=== PATIENT | female | born 1985 | race Caucasian/White ===

== ENCOUNTER 2020-03-08 08:50 | Outpatient (CLI) | payer BC ==
--- NOTE | 2020-03-08 10:09 | RAD ---
XR Hysterosalpingogram History: Infertility evaluation Comparison: None. Findings: Patient was brought to the fluoroscopic suite. All questions were answered. Informed consen t obtained. Timeout performed. The patient's outer genitalia as well as external os were prepped and draped in normal sterile fashio n. Using a catheter contrast instilled retrograde into the uterus. Uterus arcuate appearance. The fallopian tubes are patent with active contrast spillage into the peritoneal cavity. Impression: 1. Arcuate uterus. 2. Free contrast spillage to the patent fallopian tubes.
== END 2020-03-08 08:51 | disposition home or self-care (01) ==
LOC: RAD 08:50
PROVIDERS: ATTEND Student in an Organized Health Care Education/Training Program
DX: N97.9 Female infertility, unspecified (principal); Q51.810 Arcuate uterus
CPT/HCPCS: 58340; 74740

== ENCOUNTER 2021-05-15 08:45 | Emergency (ER) | payer BC ==
[2021-05-15] MEDS ORDERED: Iopamidol-370 76% 500 ML 1 ML ONE (09:13)
[2021-05-15] MEDS ORDERED: Lorazepam 2 MG/ML VIAL ONE (09:20)
[2021-05-15 09:38] LABS: #Eosinphils 0.1 thou/uL (0.0-0.7); #Lymphocytes 2.4 thou/uL (1.20-3.40); #Monocytes 0.6 thou/uL (0.11-0.59); #Neutrophils 5.7 thou/uL (1.40-6.50); %Eosinophils 1.2 % (0.0-10.0); %Lymphocytes 27.2 % (21.0-51.0); %Monocytes 6.7 % (0.0-10.0); %Neutrophils 64.8 % (42.0-75.0); Hemoglobin 13.3 g/dL (12.0-16.0); Mean Corpuscular HGB CONC 33.8 g/dL (32.0-36.0); Mean Corpuscular Hemoglobin 30.7 pg (27.0-31.0); Mean Corpuscular Volume 90.9 fL (78.0-98.0); Mean Platelet Volume 6.9 fL (7.4-10.4); Platelet Count 278 thou/uL (130-400); RBC Distribution Width 11.6 % (11.5-14.5); Red Blood Cell (RBC) Count 4.33 mill/uL (4.20-5.40); White Blood Cell (WBC) Count 8.8 thou/uL (4.8-10.8)
[2021-05-15 09:54] LABS: ALT (SGPT) 28 U/L (8-55); AST (SGOT) 21 U/L (5-34); Albumin 3.8 g/dL (3.5-5.0); Alkaline Phosphatase 82 U/L (40-110); Anion Gap 12 mmol/L (10-20); BUN (Urea Nitrogen) 10 mg/dL (7.0-18.7); Bilirubin, Total 0.4 mg/dL (0.2-1.2); CK (CPK) 114 U/L (29-168); Calc. Creatinine Clearance 0 mL/min (70-130); Calcium 9.2 mg/dL (7.8-10.44); Carbon Dioxide 24 mmol/L (22-29); Chloride 109 mmol/L (98-107); Globulin 3.3 g/dL (2.4-3.5); Glucose 94 mg/dL (70-105); Lipase 28 U/L (8-78); Potassium 4.5 mmol/L (3.5-5.1); Protein, Total 7.1 g/dL (6.0-8.3); Sodium 140 mmol/L (136-145)
[2021-05-15 10:28] LABS: BHCG - Serum Negative (NEGATIVE); Pregs Control Background? CLEAR/WHITE (CLR/WHITE); Pregs Control Bar Appear? YES (CONTROL BAR)
[2021-05-15 11:40] LABS: SARS-CoV-2 NAA Rapid Test Not Detected (NotDetected)
== END 2021-05-15 12:30 | disposition home or self-care (01) ==
LOC: ERS 08:45
DX: F41.9 Anxiety disorder, unspecified (principal); Z20.822 Contact with and (suspected) exposure to COVID-19; Z79.899 Other long term (current) drug therapy
CPT/HCPCS: 36415; 71045; 71275; 80053; 82550; 83690; 83880; 84484; 84703; 85025; 85379; 93005; 96374; J2060; U0002

== ENCOUNTER 2021-05-23 11:19 | Inpatient (IN) | payer BC ==
[2021-05-23] MEDS ORDERED: Fentanyl 100 MCG/2 ML VIAL ONE (11:21)
[2021-05-23] MEDS ORDERED: Iopamidol 370 76% 100 ML VIAL ONE (11:30)
[2021-05-23 11:43] LABS: #Basophils 0.1 thou/uL (0.0-0.2); #Eosinphils 0.1 thou/uL (0.0-0.7); #Monocytes 0.6 thou/uL (0.11-0.59); #Neutrophils 4.6 thou/uL (1.40-6.50); %Basophils 1.4 % (0.0-1.0); %Eosinophils 1.2 % (0.0-10.0); %Lymphocytes 36.3 % (21.0-51.0); %Monocytes 6.7 % (0.0-10.0); %Neutrophils 54.4 % (42.0-75.0); Hemoglobin 14.3 g/dL (12.0-16.0); Mean Corpuscular HGB CONC 34.1 g/dL (32.0-36.0); Mean Corpuscular Volume 90.9 fL (78.0-98.0); Mean Platelet Volume 6.8 fL (7.4-10.4); Platelet Count 312 thou/uL (130-400); RBC Distribution Width 11.5 % (11.5-14.5); White Blood Cell (WBC) Count 8.4 thou/uL (4.8-10.8)
[2021-05-23] MEDS ORDERED: Fentanyl CADD 100 ML IV SCH ×2 (11:45→16:15)
[2021-05-23 11:56] LABS: BHCG - Serum Negative (NEGATIVE); Pregs Control Background? CLEAR/WHITE (CLR/WHITE); Pregs Control Bar Appear? YES (CONTROL BAR)
[2021-05-23 11:57] LABS: INR-International Normal Ratio 0.9; PTT 26.7 sec (22.9-36.1); Prothrombin Time 12.7 sec (12.0-14.7)
[2021-05-23 11:59] LABS: D-Dimer Test 0.34 *mcg/mL (0.27-0.43)
[2021-05-23 12:00] LABS: Bacteria/HPF 3+ HPF (None Seen); Bilirubin Negative (Negative); Blood, Urine Negative (Negative); Clarity Turbid (Clear); Glucose, Urine (Dipstick) Normal (Negative); Ketone, Urine Negative (Negative); Leukocyte Negative Leu/uL (Negative); Nitrite Negative (Negative); Protein, Urine (Dipstick) 50 mg/dL (Neg-Trace); RBC/HPF None Seen HPF (0-3); Specific Gravity, Urine 1.009 (1.002-1.036); Squamous Epithelial 0-3 HPF (0-3); Urobilinogen Normal mg/dL (Less than 2); WBC/HPF 0-3 HPF (0-3); pH, Urine 7.5 (5.0-9.0)
[2021-05-23 12:04] LABS: Amphetamine Not Detected (NotDetected); Barbiturates Screen Not Detected (NotDetected); Benzodiazepine Screen Not Detected (NotDetected); Cocaine Metabolite Screen Not Detected (NotDetected); Methadone Not Detected (NotDetected); Methamphetamine Not Detected (NotDetected); Opiate Screen Not Detected (NotDetected); Oxycodone Screen Not Detected (NotDetected); Phencyclidine (PCP) Not Detected (NotDetected); THC/Cannabinoid Screen Not Detected (NotDetected); Tricyclic Screen Not Detected (NotDetected)
[2021-05-23 12:05] LABS: ALT (SGPT) 111 U/L (8-55); AST (SGOT) 97 U/L (5-34); Albumin 3.9 g/dL (3.5-5.0); Alkaline Phosphatase 93 U/L (40-110); Anion Gap 17 mmol/L (10-20); BUN (Urea Nitrogen) 13 mg/dL (7.0-18.7); Bilirubin, Total 0.5 mg/dL (0.2-1.2); CRP (Inflammatory) 0.52 mg/dL (= or < 0.5); Calc. Creatinine Clearance 0 mL/min (70-130); Calcium 9.2 mg/dL (7.8-10.44); Carbon Dioxide 19 mmol/L (22-29); Chloride 104 mmol/L (98-107); Globulin 3.7 g/dL (2.4-3.5); Glucose 157 mg/dL (70-105); Potassium 3.6 mmol/L (3.5-5.1); Protein, Total 7.6 g/dL (6.0-8.3); Sodium 136 mmol/L (136-145)
[2021-05-23 12:20] LABS: Thyroid Stimulating Hormone 2.9918 uIU/mL (0.35-4.94)
[2021-05-23] MEDS ORDERED: Bivalirudin 250 MG VIAL ONE (12:44)
[2021-05-23] MEDS ORDERED: Aggrastat 12.5 MG/250 ML 250 ML ONE (12:53)
[2021-05-23] MEDS ORDERED: Propofol 1,000 MG/100 ML VIAL IV ONE (13:05)
[2021-05-23 14:44] LABS: Actual Bicarbonate (HCO3a) 17.1 mEq/L (22-28); Base Excess (BEa) -5.8 mEq/L (-2.0 to +3.0); CO2 Tension 26.5 mmHg (35.0-45.0); Calcium, Ionized (arterial) 1.07 mmol/L (1.12-1.30); Carboxyhemoglobin (COHb) 0.3 gm% (0.0-3.0); Hemoglobin (Hb) 12.8 g/dL (12.0-16.0); O2 Tension (PaO2), arterial 186.1 mmHg (80.0-100.0); Potassium - ABG Lab 3.97 mmol/L (3.70-5.30); pH, Arterial 7.43 (7.35-7.45)
[2021-05-23 14:45] LABS: Puncture Site Arterial Line
[2021-05-23 14:46] LABS: ALV-art Gradient 65.975 mmHg (0-20)
[2021-05-23] MEDS ORDERED: Electrolyte Replacement Protocol 1 EACH IVPB ONE (14:50)
[2021-05-23] MEDS ORDERED: Propofol 1,000 MG/100 ML VIAL IV PRN (14:51)
[2021-05-23 14:54] LABS: SARS-CoV-2 NAA Rapid Test Not Detected (NotDetected)
[2021-05-23] MEDS ORDERED: TICAGRELOR 90 MG TABLET PO SCH (14:56)
[2021-05-23] MEDS ORDERED: Mag-Al 1200 mg/1200 mg/30 ML UDCUP PO PRN (14:56)
[2021-05-23] MEDS ORDERED: Aspirin 325 MG TAB PO SCH (14:56)
[2021-05-23] MEDS ORDERED: Electrolyte Replacement Protocol 1 EACH IVPB PRN (14:56)
[2021-05-23] MEDS ORDERED: Ventilator Sedation Protocol 1 EACH FS SCH ×2 (15:00)
[2021-05-23 15:28] LABS: Lactic Acid 1.2 mmol/L (0.5-2.2)
[2021-05-23 15:37] LABS: Troponin I 0.158 ng/mL (< 0.028)
[2021-05-23] MEDS ORDERED: Propofol BOLUS 1,000 MG/100 ML VIAL IV PRN (16:15)
[2021-05-23] MEDS ORDERED: Fentanyl BOLUS 250 ML IVPB PRN (16:15)
[2021-05-23] MEDS ORDERED: Morphine 2 MG/ML VIAL SLOW IVP PRN (16:15)
[2021-05-23] MEDS ORDERED: DISCONTINUE PREVIOUS NARCOTIC PAIN MEDICATIONS AND BENZODIAZEPINES FS SCH (16:15)
[2021-05-23 16:27] LABS: #Basophils 0.1 thou/uL (0.0-0.2); #Lymphocytes 1.6 thou/uL (1.20-3.40); #Monocytes 0.6 thou/uL (0.11-0.59); #Neutrophils 14.9 thou/uL (1.40-6.50); %Basophils 0.5 % (0.0-1.0); %Eosinophils 0.2 % (0.0-10.0); %Lymphocytes 9.1 % (21.0-51.0); %Monocytes 3.5 % (0.0-10.0); %Neutrophils 86.8 % (42.0-75.0); Hemoglobin 12.6 g/dL (12.0-16.0); Mean Corpuscular HGB CONC 34.4 g/dL (32.0-36.0); Mean Corpuscular Hemoglobin 31.4 pg (27.0-31.0); Mean Corpuscular Volume 91.3 fL (78.0-98.0); Mean Platelet Volume 7.4 fL (7.4-10.4); Platelet Count 310 thou/uL (130-400); RBC Distribution Width 11.6 % (11.5-14.5); Red Blood Cell (RBC) Count 4.01 mill/uL (4.20-5.40); White Blood Cell (WBC) Count 17.2 thou/uL (4.8-10.8)
[2021-05-23] MEDS: Lorazepam 2 MG/ML VIAL SLOW IVP PRN ×2 (16:42→21:03)
[2021-05-23] MEDS: Carvedilol 3.125 MG TAB PO SCH (17:09)
[2021-05-23] MEDS: Propofol 1,000 MG/100 ML VIAL IV PRN ×2 (17:10→21:52)
[2021-05-23] MEDS ORDERED: FLU VACC QS2021-22(6MOS UP)/PF 60 MCG/0.5 ML SYRINGE IM ONE (17:15)
[2021-05-23] MEDS: Sodium Chloride 0.9% 1,000 ML IV SCH (17:18)
[2021-05-23] MEDS ORDERED: Fentanyl CADD 100 ML ONE (17:18)
[2021-05-23 18:50] LABS: Troponin I 0.399 ng/mL (< 0.028)
[2021-05-23] MEDS: Atorvastatin Calcium 40 MG TAB PO SCH (21:16)
[2021-05-23] MEDS: TICAGRELOR 90 MG TABLET PO SCH (21:36)
[2021-05-23 22:06] LABS: #Lymphocytes 1.8 thou/uL (1.20-3.40); #Neutrophils 10.6 thou/uL (1.40-6.50); %Basophils 0.2 % (0.0-1.0); %Eosinophils 0.2 % (0.0-10.0); %Lymphocytes 13.5 % (21.0-51.0); %Monocytes 7.2 % (0.0-10.0); %Neutrophils 78.9 % (42.0-75.0); Hemoglobin 12.7 g/dL (12.0-16.0); Mean Corpuscular HGB CONC 35.1 g/dL (32.0-36.0); Mean Corpuscular Volume 91.2 fL (78.0-98.0); Mean Platelet Volume 6.5 fL (7.4-10.4); Platelet Count 299 thou/uL (130-400); RBC Distribution Width 11.5 % (11.5-14.5); Red Blood Cell (RBC) Count 3.95 mill/uL (4.20-5.40); White Blood Cell (WBC) Count 13.5 thou/uL (4.8-10.8)
[2021-05-24] MEDS: Aggrastat 12.5 MG/250 ML 250 ML IVPB SCH ×2 (00:51→16:30)
[2021-05-24] MEDS: Sodium Chloride 0.9% 1,000 ML IV SCH ×2 (02:47→07:48)
[2021-05-24] MEDS: Propofol 1,000 MG/100 ML VIAL IV PRN ×2 (02:49→07:46)
[2021-05-24 03:55] LABS: PTT 26.7 sec (22.9-36.1); Prothrombin Time 12.8 sec (12.0-14.7)
[2021-05-24 04:08] LABS: Hemoglobin 12.5 g/dL (12.0-16.0); Mean Corpuscular Hemoglobin 32.1 pg (27.0-31.0); Mean Corpuscular Volume 91.6 fL (78.0-98.0); Mean Platelet Volume 6.7 fL (7.4-10.4); Platelet Count 286 thou/uL (130-400); RBC Distribution Width 11.7 % (11.5-14.5); Red Blood Cell (RBC) Count 3.88 mill/uL (4.20-5.40); White Blood Cell (WBC) Count 14.9 thou/uL (4.8-10.8)
[2021-05-24 04:49] LABS: Albumin 3.4 g/dL (3.5-5.0)
[2021-05-24 04:50] LABS: Chloride 107 mmol/L (98-107); Potassium 3.6 mmol/L (3.5-5.1); Sodium 137 mmol/L (136-145)
[2021-05-24 04:51] LABS: Calcium 8.5 mg/dL (7.8-10.44); Glucose 109 mg/dL (70-105); Triglycerides 221 mg/dL (Less than 150)
[2021-05-24 04:52] LABS: Globulin 2.9 g/dL (2.4-3.5); Protein, Total 6.3 g/dL (6.0-8.3)
[2021-05-24 04:53] LABS: Bilirubin, Total 0.6 mg/dL (0.2-1.2); Carbon Dioxide 23 mmol/L (22-29)
[2021-05-24 04:54] LABS: Alkaline Phosphatase 77 U/L (40-110)
[2021-05-24 04:55] LABS: Calc. Creatinine Clearance 160 mL/min (70-130)
[2021-05-24 04:56] LABS: BUN (Urea Nitrogen) 10 mg/dL (7.0-18.7); Cholesterol 199 mg/dl (< 200 Desired)
[2021-05-24 04:57] LABS: ALT (SGPT) 75 U/L (8-55); AST (SGOT) 60 U/L (5-34); Cardiac Risk 5.4 (Less than 4.5); HDL Cholesterol 37 mg/dL (>60 Neg Risk); LDL Cholesterol, Calculated 118 mg/dL; Magnesium 2.1 mg/dL (1.6-2.6)
[2021-05-24 05:05] LABS: Anion Gap 11 mmol/L (10-20)
[2021-05-24 05:21] LABS: Band 2 % (5-11); Lymphocytes 35 % (21-51); MDiff Complete? YES; Monocytes 4 % (0-10); Neutrophil 59 % (42-75)
[2021-05-24 05:55] LABS: Phosphorus 3.1 mg/dL (2.3-4.7)
[2021-05-24] MEDS: Carvedilol 3.125 MG TAB PO SCH ×3 (07:46→16:32)
[2021-05-24] MEDS: Lisinopril 2.5 MG TAB PO SCH (08:37)
[2021-05-24] MEDS: TICAGRELOR 90 MG TABLET PO SCH ×2 (08:40→20:21)
[2021-05-24 09:38] LABS: #Eosinphils 0.1 thou/uL (0.0-0.7); #Lymphocytes 3.1 thou/uL (1.20-3.40); #Monocytes 1.3 thou/uL (0.11-0.59); #Neutrophils 10.6 thou/uL (1.40-6.50); %Basophils 0.1 % (0.0-1.0); %Eosinophils 0.8 % (0.0-10.0); %Lymphocytes 20.3 % (21.0-51.0); %Monocytes 8.5 % (0.0-10.0); %Neutrophils 70.3 % (42.0-75.0); Hemoglobin 12.2 g/dL (12.0-16.0); Mean Corpuscular HGB CONC 34.1 g/dL (32.0-36.0); Mean Corpuscular Hemoglobin 31.3 pg (27.0-31.0); Mean Corpuscular Volume 91.7 fL (78.0-98.0); Mean Platelet Volume 6.7 fL (7.4-10.4); Platelet Count 276 thou/uL (130-400); RBC Distribution Width 11.8 % (11.5-14.5); Red Blood Cell (RBC) Count 3.91 mill/uL (4.20-5.40); White Blood Cell (WBC) Count 15.1 thou/uL (4.8-10.8)
[2021-05-24] MEDS ORDERED: Morphine 4 MG/ML VIAL SLOW IVP PRN (11:36)
[2021-05-24] MEDS: Ondansetron PF 4 MG/2 ML Vial IVP PRN ×2 (13:33→20:20)
[2021-05-24 16:41] LABS: #Lymphocytes 1.4 thou/uL (1.20-3.40); #Monocytes 0.7 thou/uL (0.11-0.59); #Neutrophils 14.8 thou/uL (1.40-6.50); %Basophils 0.1 % (0.0-1.0); %Eosinophils 0.1 % (0.0-10.0); %Lymphocytes 8.2 % (21.0-51.0); %Monocytes 4.3 % (0.0-10.0); %Neutrophils 87.3 % (42.0-75.0); Hemoglobin 11.8 g/dL (12.0-16.0); Mean Corpuscular HGB CONC 35.9 g/dL (32.0-36.0); Mean Corpuscular Hemoglobin 32.6 pg (27.0-31.0); Mean Corpuscular Volume 90.9 fL (78.0-98.0); Mean Platelet Volume 6.8 fL (7.4-10.4); Platelet Count 267 thou/uL (130-400); RBC Distribution Width 11.4 % (11.5-14.5); Red Blood Cell (RBC) Count 3.63 mill/uL (4.20-5.40); White Blood Cell (WBC) Count 16.9 thou/uL (4.8-10.8)
[2021-05-24 17:13] LABS: ANA Symphony (Qualitative) Negative (Negative); ANA Symphony (Quantitative) 0.3 Ratio (< 0.7 Negative); Cardiolipin IgG Ab 0.7 GPL-U/mL (<10 Negative); EliA APS New Method **** NEW METHOD ****
[2021-05-24] MEDS: Atorvastatin Calcium 40 MG TAB PO SCH (20:20)
[2021-05-24 21:18] LABS: #Eosinphils 0.1 thou/uL (0.0-0.7); #Lymphocytes 2.9 thou/uL (1.20-3.40); #Monocytes 1.2 thou/uL (0.11-0.59); #Neutrophils 9.7 thou/uL (1.40-6.50); %Basophils 0.1 % (0.0-1.0); %Eosinophils 0.4 % (0.0-10.0); %Lymphocytes 21.1 % (21.0-51.0); %Monocytes 8.3 % (0.0-10.0); %Neutrophils 70.1 % (42.0-75.0); Hemoglobin 11.4 g/dL (12.0-16.0); Mean Corpuscular HGB CONC 34.6 g/dL (32.0-36.0); Mean Corpuscular Hemoglobin 31.6 pg (27.0-31.0); Mean Corpuscular Volume 91.4 fL (78.0-98.0); Mean Platelet Volume 6.6 fL (7.4-10.4); Platelet Count 268 thou/uL (130-400); RBC Distribution Width 11.5 % (11.5-14.5); Red Blood Cell (RBC) Count 3.62 mill/uL (4.20-5.40); White Blood Cell (WBC) Count 13.9 thou/uL (4.8-10.8)
[2021-05-25] MEDS: ALPRAZolam 0.25 MG TAB PO PRN ×2 (01:58→13:38)
[2021-05-25] MEDS: Sodium Chloride 0.9% 1,000 ML IV SCH ×2 (02:41→14:00)
[2021-05-25 04:46] LABS: Hemoglobin 11.1 g/dL (12.0-16.0); Mean Corpuscular HGB CONC 34.1 g/dL (32.0-36.0); Mean Corpuscular Hemoglobin 31.4 pg (27.0-31.0); Mean Corpuscular Volume 91.9 fL (78.0-98.0); Mean Platelet Volume 6.9 fL (7.4-10.4); Platelet Count 278 thou/uL (130-400); RBC Distribution Width 11.4 % (11.5-14.5); Red Blood Cell (RBC) Count 3.54 mill/uL (4.20-5.40); White Blood Cell (WBC) Count 12.1 thou/uL (4.8-10.8)
[2021-05-25] MEDS: Aggrastat 12.5 MG/250 ML 250 ML IVPB SCH (05:07)
[2021-05-25 05:20] LABS: Band 5 % (5-11); Lymphocytes 16 % (21-51); MDiff Complete? YES; Monocytes 4 % (0-10); Neutrophil 75 % (42-75)
[2021-05-25 05:28] LABS: ALT (SGPT) 60 U/L (8-55); AST (SGOT) 47 U/L (5-34); Albumin 3.2 g/dL (3.5-5.0); Alkaline Phosphatase 72 U/L (40-110); Anion Gap 8 mmol/L (10-20); BUN (Urea Nitrogen) 7 mg/dL (7.0-18.7); Bilirubin, Total 0.7 mg/dL (0.2-1.2); Calc. Creatinine Clearance 154 mL/min (70-130); Calcium 8.4 mg/dL (7.8-10.44); Carbon Dioxide 23 mmol/L (22-29); Chloride 110 mmol/L (98-107); Globulin 2.8 g/dL (2.4-3.5); Glucose 94 mg/dL (70-105); Magnesium 1.8 mg/dL (1.6-2.6); Phosphorus 2.1 mg/dL (2.3-4.7); Potassium 3.7 mmol/L (3.5-5.1); Sodium 137 mmol/L (136-145)
[2021-05-25] MEDS ORDERED: Magnesium 2 GM/50 ML 2 GM in Premix Bag 1 BAG IVPB SCH (07:00)
[2021-05-25 07:59] LABS: #Basophils 0.1 thou/uL (0.0-0.2); #Eosinphils 0.1 thou/uL (0.0-0.7); #Lymphocytes 2.4 thou/uL (1.20-3.40); #Monocytes 0.9 thou/uL (0.11-0.59); #Neutrophils 7.5 thou/uL (1.40-6.50); %Basophils 0.5 % (0.0-1.0); %Eosinophils 1.3 % (0.0-10.0); %Lymphocytes 21.7 % (21.0-51.0); %Monocytes 8.1 % (0.0-10.0); %Neutrophils 68.4 % (42.0-75.0); Hemoglobin 11.3 g/dL (12.0-16.0); Mean Corpuscular HGB CONC 34.5 g/dL (32.0-36.0); Mean Corpuscular Hemoglobin 31.5 pg (27.0-31.0); Mean Corpuscular Volume 91.4 fL (78.0-98.0); Mean Platelet Volume 6.5 fL (7.4-10.4); Platelet Count 271 thou/uL (130-400); RBC Distribution Width 11.4 % (11.5-14.5); Red Blood Cell (RBC) Count 3.58 mill/uL (4.20-5.40)
[2021-05-25] MEDS: Lisinopril 2.5 MG TAB PO SCH (08:19)
[2021-05-25] MEDS: TICAGRELOR 90 MG TABLET PO SCH ×2 (08:19→22:12)
[2021-05-25] MEDS: Carvedilol 3.125 MG TAB PO SCH ×2 (08:20→19:47)
[2021-05-25] MEDS ORDERED: Communication Order-Pharmacy FS SCH (09:15)
[2021-05-25] MEDS ORDERED: Acetaminophen 325 MG TAB PO PRN (10:25)
[2021-05-25 10:41] LABS: Troponin I 1.693 ng/mL (< 0.028)
[2021-05-25] MEDS ORDERED: Enoxaparin Sodium 80 MG/0.8 ML SYRINGE SC SCH ×3 (13:00→23:59)
[2021-05-25] MEDS: Atorvastatin Calcium 40 MG TAB PO SCH (22:12)
[2021-05-25] MEDS ORDERED: Lorazepam 1 MG TAB PO SCH (22:15)
[2021-05-26 02:47] LABS: Band 5 % (5-11); Eosinophils 2 % (0-10); Hemoglobin 11.3 g/dL (12.0-16.0); Lymphocytes 45 % (21-51); MDiff Complete? YES; Mean Corpuscular HGB CONC 33.8 g/dL (32.0-36.0); Mean Corpuscular Hemoglobin 30.5 pg (27.0-31.0); Mean Corpuscular Volume 90.4 fL (78.0-98.0); Mean Platelet Volume 6.6 fL (7.4-10.4); Monocytes 6 % (0-10); Neutrophil 41 % (42-75); Platelet Count 275 thou/uL (130-400); RBC Distribution Width 11.3 % (11.5-14.5); Red Blood Cell (RBC) Count 3.72 mill/uL (4.20-5.40); White Blood Cell (WBC) Count 10.2 thou/uL (4.8-10.8)
[2021-05-26] MEDS ORDERED: Magnesium 2 GM/50 ML 2 GM in Premix Bag 1 BAG IVPB SCH ×3 (04:45→08:30)
[2021-05-26] MEDS: ALPRAZolam 0.25 MG TAB PO PRN (06:41)
[2021-05-26 07:43] VITALS: BMI 36.6
[2021-05-26] MEDS: Lisinopril 2.5 MG TAB PO SCH (08:30)
[2021-05-26] MEDS: TICAGRELOR 90 MG TABLET PO SCH ×2 (08:31→20:17)
[2021-05-26] MEDS: Carvedilol 3.125 MG TAB PO SCH ×2 (08:31→18:03)
[2021-05-26] MEDS: Sodium Chloride 0.9% 1,000 ML IV SCH ×2 (08:37→11:55)
[2021-05-26] MEDS ORDERED: Famotidine 20 MG TAB PO SCH (10:30)
[2021-05-26] MEDS: Aspirin 81 mg Enteric Coated Tablet PO SCH (12:00)
[2021-05-26] MEDS ORDERED: Iopamidol 370 76% 100 ML VIAL ONE (13:24)
[2021-05-26] MEDS ORDERED: Iopamidol 370 76% 50 ML VIAL FS ONE (13:24)
[2021-05-26] MEDS ORDERED: Lidocaine 1% (PF) 30 ML VIAL ONE (14:14)
[2021-05-26] MEDS ORDERED: Midazolam HCl 2 mg/2 ml Vial ONE ×2 (15:12→16:10)
[2021-05-26] MEDS ORDERED: Heparin 10,000 UNITS/ 10 ML VIAL ONE (15:12)
[2021-05-26] MEDS ORDERED: Fentanyl 100 MCG/2 ML VIAL ONE (15:13)
[2021-05-26] MEDS ORDERED: Nitroglycerin 100MG/250ML BOT 250 ML ONE (15:40)
[2021-05-26] MEDS ORDERED: Nitroglycerin 0.4 MG TAB (25 Tab Bottle) SL PRN (17:48)
[2021-05-26] MEDS: Lorazepam 1 MG TAB PO PRN (20:15)
[2021-05-26] MEDS: Atorvastatin Calcium 40 MG TAB PO SCH (20:16)
[2021-05-26] MEDS: Famotidine 20 MG TAB PO SCH (20:16)
[2021-05-27] MEDS: Sodium Chloride 0.9% 1,000 ML IV SCH (00:30)
[2021-05-27 05:23] LABS: Hemoglobin 11.3 g/dL (12.0-16.0); Mean Corpuscular HGB CONC 34.1 g/dL (32.0-36.0); Mean Corpuscular Hemoglobin 31.1 pg (27.0-31.0); Mean Corpuscular Volume 91.4 fL (78.0-98.0); Mean Platelet Volume 6.6 fL (7.4-10.4); Platelet Count 286 thou/uL (130-400); RBC Distribution Width 11.2 % (11.5-14.5); Red Blood Cell (RBC) Count 3.63 mill/uL (4.20-5.40); White Blood Cell (WBC) Count 8.4 thou/uL (4.8-10.8)
[2021-05-27 05:38] LABS: ALT (SGPT) 37 U/L (8-55); AST (SGOT) 25 U/L (5-34); Albumin 3.3 g/dL (3.5-5.0); Alkaline Phosphatase 72 U/L (40-110); Anion Gap 10 mmol/L (10-20); BUN (Urea Nitrogen) 7 mg/dL (7.0-18.7); Bilirubin, Total 0.7 mg/dL (0.2-1.2); Calc. Creatinine Clearance 153 mL/min (70-130); Calcium 8.8 mg/dL (7.8-10.44); Carbon Dioxide 23 mmol/L (22-29); Chloride 108 mmol/L (98-107); Globulin 3.2 g/dL (2.4-3.5); Glucose 95 mg/dL (70-105); Potassium 3.6 mmol/L (3.5-5.1); Protein, Total 6.5 g/dL (6.0-8.3); Sodium 137 mmol/L (136-145)
[2021-05-27 05:54] LABS: Band 3 % (5-11); Eosinophils 2 % (0-10); Lymphocytes 25 % (21-51); MDiff Complete? YES; Monocytes 6 % (0-10); Neutrophil 64 % (42-75)
[2021-05-27] MEDS: Carvedilol 3.125 MG TAB PO SCH (08:38)
[2021-05-27] MEDS: TICAGRELOR 90 MG TABLET PO SCH (08:39)
[2021-05-27] MEDS: Lisinopril 2.5 MG TAB PO SCH (08:39)
[2021-05-27] MEDS: Famotidine 20 MG TAB PO SCH (08:39)
[2021-05-27] MEDS: Aspirin 81 mg Enteric Coated Tablet PO SCH (08:40)
[2021-05-27] MEDS: Lorazepam 1 MG TAB PO PRN (08:44)
[2021-05-27] MEDS ORDERED: Aspirin Chewable 81 MG TAB PO SCH (09:00)
[2021-05-27 09:49] VITALS: TEMP 98.3
[2021-05-27 11:43] VITALS: BP 116/72
== END 2021-05-27 12:35 | disposition home or self-care (01) | DRG 246 ==
LOC: ERS 11:19 → CCU 11:39
PROVIDERS: ADMIT Internal Medicine Cardiovascular Disease; ATTEND Internal Medicine
PROC: 5A1945Z Respiratory Ventilation, 24-96 Consecutive Hours (ICD-10-PCS; 2021-05-23)
PROC: 4A023N7 Measurement of Cardiac Sampling and Pressure, Left Heart, Percutaneous Approach (ICD-10-PCS; 2021-05-23)
PROC: 0BH17EZ Insertion of Endotracheal Airway into Trachea, Via Natural or Artificial Opening (ICD-10-PCS; 2021-05-23)
PROC: 0D9670Z Drainage of Stomach with Drainage Device, Via Natural or Artificial Opening (ICD-10-PCS; 2021-05-23)
PROC: B2151ZZ Fluoroscopy of Left Heart using Low Osmolar Contrast (ICD-10-PCS; 2021-05-23)
PROC: B2111ZZ Fluoroscopy of Multiple Coronary Arteries using Low Osmolar Contrast (ICD-10-PCS; 2021-05-23)
PROC: 3E03317 Introduction of Other Thrombolytic into Peripheral Vein, Percutaneous Approach (ICD-10-PCS; 2021-05-23)
PROC: 027034Z Dilation of Coronary Artery, One Artery with Drug-eluting Intraluminal Device, Percutaneous Approach (ICD-10-PCS; principal; 2021-05-26)
PROC: 4A023N7 Measurement of Cardiac Sampling and Pressure, Left Heart, Percutaneous Approach (ICD-10-PCS; 2021-05-26)
PROC: B2151ZZ Fluoroscopy of Left Heart using Low Osmolar Contrast (ICD-10-PCS; 2021-05-26)
PROC: B2111ZZ Fluoroscopy of Multiple Coronary Arteries using Low Osmolar Contrast (ICD-10-PCS; 2021-05-26)
DX: I21.4 Non-ST elevation (NSTEMI) myocardial infarction (principal); I49.01 Ventricular fibrillation; I46.2 Cardiac arrest due to underlying cardiac condition; Z20.822 Contact with and (suspected) exposure to COVID-19; F41.9 Anxiety disorder, unspecified; I10 Essential (primary) hypertension; I25.10 Atherosclerotic heart disease of native coronary artery without angina pectoris; Z88.8 Allergy status to other drugs, medicaments and biological substances; Z78.1 Physical restraint status; Z79.899 Other long term (current) drug therapy
CPT/HCPCS: 0240U; 36140; 36415; 71045; 80053; 80061; 80306; 81003; 81015; 82805; 83605; 83735; 84100; 84443; 84484; 84703; 85347; 85379; 85610; 85730; 86038; 86140; 86147; 86225; 92928; 92977; 92978; 93005; 93010; 93306; 93458; 93798; 94003; 94760; 96374; 99152; 99153; C1753; C9600; J0153; J0583; J1644; J1650; J2001; J2060; J2250; J2405; J2704; J3010; J3246; J3475; J7050; Q9967

== ENCOUNTER 2021-12-19 09:30 | Inpatient (IN) | payer BC, SELFPAY ==
[2021-12-19 10:01] LABS: #Eosinphils 0.1 thou/uL (0.0-0.7); #Lymphocytes 2.6 thou/uL (1.20-3.40); #Monocytes 0.5 thou/uL (0.11-0.59); #Neutrophils 4.7 thou/uL (1.40-6.50); %Basophils 0.4 % (0.0-1.0); %Eosinophils 1.4 % (0.0-10.0); %Lymphocytes 32.9 % (21.0-51.0); %Monocytes 6.6 % (0.0-10.0); %Neutrophils 58.7 % (42.0-75.0); Hemoglobin 13.6 g/dL (12.0-16.0); Mean Corpuscular HGB CONC 33.9 g/dL (32.0-36.0); Mean Corpuscular Hemoglobin 31.6 pg (27.0-31.0); Mean Corpuscular Volume 93.3 fL (78.0-98.0); Platelet Count 231 thou/uL (130-400); RBC Distribution Width 11.5 % (11.5-14.5)
[2021-12-19 10:19] LABS: ALT (SGPT) 98 U/L (8-55); AST (SGOT) 44 U/L (5-34); Albumin 4.2 g/dL (3.5-5.0); Alkaline Phosphatase 96 U/L (40-110); Anion Gap 12 mmol/L (10-20); BUN (Urea Nitrogen) 17 mg/dL (7.0-18.7); Bilirubin, Total 0.4 mg/dL (0.2-1.2); Calc. Creatinine Clearance 0 mL/min (70-130); Calcium 9.3 mg/dL (7.8-10.44); Carbon Dioxide 21 mmol/L (22-29); Chloride 107 mmol/L (98-107); Globulin 3.5 g/dL (2.4-3.5); Glucose 105 mg/dL (70-105); Lipase 25 U/L (8-78); Potassium 4.1 mmol/L (3.5-5.1); Protein, Total 7.7 g/dL (6.0-8.3); Sodium 136 mmol/L (136-145)
[2021-12-19] MEDS ORDERED: Aspirin Chewable 81 MG TAB ONE (11:08)
[2021-12-19] MEDS ORDERED: Ondansetron ODT 4 MG TAB PO PRN (12:03)
[2021-12-19] MEDS ORDERED: Ondansetron PF 4 MG/2 ML Vial IVP PRN (12:03)
[2021-12-19] MEDS ORDERED: Nitroglycerin 0.4 MG TAB (25 Tab Bottle) SL PRN (13:18)
[2021-12-19 13:24] LABS: Cardiac Risk 3.2 (Less than 4.5); Cholesterol 109 mg/dl (< 200 Desired); HDL Cholesterol 34 mg/dL (>60 Neg Risk); LDL Cholesterol, Calculated 52 mg/dL; Triglycerides 115 mg/dL (Less than 150)
[2021-12-19 13:29] LABS: Troponin I Less than 0.010 ng/mL (< 0.028)
[2021-12-19 13:31] LABS: BHCG - Serum Negative (NEGATIVE); Pregs Control Background? CLEAR/WHITE (CLR/WHITE); Pregs Control Bar Appear? YES (CONTROL BAR)
[2021-12-19 13:42] LABS: Thyroid Stimulating Hormone 1.1906 uIU/mL (0.35-4.94)
[2021-12-19] MEDS ORDERED: TICAGRELOR 90 MG TABLET PO SCH (13:49)
[2021-12-19 13:52] LABS: Vitamin B12 532 pg/mL (211-911)
[2021-12-19 13:55] LABS: Hemoglobin A1c 5.3 % (4.0-6.0)
[2021-12-19 13:56] LABS: HBCM Index 0.08 S/CO (0-0.79); HBSAg Index 0.29 S/CO (0-0.99); HIV (1/2) Antibody/Antigen Non-Reactive (NonReactive); HIV 1/2 INDEX 0.15 S/CO (<1.00); Hep A IgM AB Non-Reactive (NonReactive); Hep A IgM S/CO 0.28 S/CO (0-0.79); Hep B Surf Ag Non-Reactive S/CO (NonReactive); Hep C IgG Ab Non-Reactive (NonReactive); Hepatitis B Core IgM Abs Non-Reactive (NonReactive)
[2021-12-19 14:07] VITALS: BMI 36.3
[2021-12-19] MEDS ORDERED: Enoxaparin Sodium 100 MG/ML SYRINGE SC SCH (14:15)
[2021-12-19] MEDS: Lactated Ringer's 1,000 ML IV SCH ×2 (14:23→22:28)
[2021-12-19] MEDS: Lorazepam 1 MG TAB PO PRN ×2 (14:44→22:28)
[2021-12-19 14:58] LABS: INR-International Normal Ratio 0.9; Prothrombin Time 12.4 sec (12.0-14.7)
[2021-12-19] MEDS ORDERED: Nitroglycerin 2% Ointment 1 INCH/1 GM Packet TOP SCH (15:00)
[2021-12-19 15:02] LABS: Syphilis Antibody Nonreactive (Nonreactive); Syphilis Antibody Index 0.03 S/CO (<1.00 Non-Reactive)
[2021-12-19 15:26] LABS: Troponin I Less than 0.010 ng/mL (< 0.028)
[2021-12-19] MEDS: Acetaminophen 325 MG TAB PO PRN (19:18)
[2021-12-19] MEDS: Famotidine 20 MG TAB PO SCH (21:24)
[2021-12-19] MEDS: Enoxaparin Sodium 100 MG/ML SYRINGE SC SCH (21:24)
[2021-12-19] MEDS: TICAGRELOR 90 MG TABLET PO SCH (21:24)
[2021-12-19] MEDS: Atorvastatin Calcium 40 MG TAB PO SCH (21:24)
[2021-12-19] MEDS: Melatonin 3 MG TAB PO PRN (22:27)
[2021-12-19] MEDS: Nitroglycerin 2% Ointment 1 INCH/1 GM Packet TOP SCH (22:28)
[2021-12-20 05:20] LABS: #Eosinphils 0.2 thou/uL (0.0-0.7); #Lymphocytes 3.1 thou/uL (1.20-3.40); #Monocytes 0.7 thou/uL (0.11-0.59); #Neutrophils 4.5 thou/uL (1.40-6.50); %Basophils 0.1 % (0.0-1.0); %Eosinophils 1.8 % (0.0-10.0); %Lymphocytes 36.2 % (21.0-51.0); %Monocytes 8.4 % (0.0-10.0); %Neutrophils 53.4 % (42.0-75.0); Hemoglobin 12.9 g/dL (12.0-16.0); Mean Corpuscular HGB CONC 32.8 g/dL (32.0-36.0); Mean Corpuscular Hemoglobin 31.2 pg (27.0-31.0); Mean Corpuscular Volume 95.2 fL (78.0-98.0); Platelet Count 215 thou/uL (130-400); RBC Distribution Width 11.4 % (11.5-14.5); Red Blood Cell (RBC) Count 4.15 mill/uL (4.20-5.40); White Blood Cell (WBC) Count 8.5 thou/uL (4.8-10.8)
[2021-12-20 05:40] LABS: ALT (SGPT) 65 U/L (8-55); AST (SGOT) 26 U/L (5-34); Albumin 3.4 g/dL (3.5-5.0); Alkaline Phosphatase 82 U/L (40-110); Anion Gap 9 mmol/L (10-20); BUN (Urea Nitrogen) 14 mg/dL (7.0-18.7); Bilirubin, Total 0.4 mg/dL (0.2-1.2); Calc. Creatinine Clearance 115 mL/min (70-130); Calcium 8.7 mg/dL (7.8-10.44); Carbon Dioxide 20 mmol/L (22-29); Chloride 112 mmol/L (98-107); Globulin 3.2 g/dL (2.4-3.5); Glucose 90 mg/dL (70-105); Potassium 4.3 mmol/L (3.5-5.1); Protein, Total 6.6 g/dL (6.0-8.3); Sodium 137 mmol/L (136-145)
[2021-12-20] MEDS: Lactated Ringer's 1,000 ML IV SCH ×2 (06:01→09:23)
[2021-12-20] MEDS: Nitroglycerin 2% Ointment 1 INCH/1 GM Packet TOP SCH ×4 (06:02→20:14)
[2021-12-20] MEDS ORDERED: Lisinopril 2.5 MG TAB PO SCH (09:00)
[2021-12-20] MEDS ORDERED: Enoxaparin Sodium 40 MG/0.4 ML SYRINGE SC SCH (09:00)
[2021-12-20] MEDS: Aspirin 81 mg Enteric Coated Tablet PO SCH (09:13)
[2021-12-20] MEDS: Lorazepam 1 MG TAB PO PRN ×2 (09:13→17:41)
[2021-12-20] MEDS: Famotidine 20 MG TAB PO SCH ×2 (09:14→20:15)
[2021-12-20] MEDS: TOPIRAMATE 200 MG PO SCH (09:14)
[2021-12-20] MEDS: TICAGRELOR 90 MG TABLET PO SCH ×2 (09:14→20:15)
[2021-12-20] MEDS: Escitalopram Oxalate 20 mg Tablet PO SCH (09:14)
[2021-12-20] MEDS: Enoxaparin Sodium 100 MG/ML SYRINGE SC SCH ×2 (09:15→20:13)
[2021-12-20] MEDS: Atorvastatin Calcium 40 MG TAB PO SCH (20:13)
[2021-12-20] MEDS: Melatonin 3 MG TAB PO PRN (20:14)
[2021-12-21] MEDS: Nitroglycerin 2% Ointment 1 INCH/1 GM Packet TOP SCH ×3 (04:31→20:09)
[2021-12-21] MEDS: Lorazepam 1 MG TAB PO PRN ×3 (05:06→21:07)
[2021-12-21 05:10] LABS: #Eosinphils 0.2 thou/uL (0.0-0.7); #Lymphocytes 3.2 thou/uL (1.20-3.40); #Monocytes 0.7 thou/uL (0.11-0.59); #Neutrophils 7.1 thou/uL (1.40-6.50); %Basophils 0.4 % (0.0-1.0); %Eosinophils 1.6 % (0.0-10.0); %Lymphocytes 28.2 % (21.0-51.0); %Monocytes 6.5 % (0.0-10.0); %Neutrophils 63.4 % (42.0-75.0); Hemoglobin 13.3 g/dL (12.0-16.0); Mean Corpuscular HGB CONC 33.6 g/dL (32.0-36.0); Mean Corpuscular Hemoglobin 32.1 pg (27.0-31.0); Mean Corpuscular Volume 95.6 fL (78.0-98.0); Mean Platelet Volume 6.9 fL (7.4-10.4); Platelet Count 212 thou/uL (130-400); RBC Distribution Width 11.5 % (11.5-14.5); Red Blood Cell (RBC) Count 4.15 mill/uL (4.20-5.40); White Blood Cell (WBC) Count 11.2 thou/uL (4.8-10.8)
[2021-12-21] MEDS: Acetaminophen 325 MG TAB PO PRN (05:17)
[2021-12-21 05:33] LABS: ALT (SGPT) 62 U/L (8-55); AST (SGOT) 23 U/L (5-34); Albumin 3.7 g/dL (3.5-5.0); Alkaline Phosphatase 83 U/L (40-110); Anion Gap 11 mmol/L (10-20); BUN (Urea Nitrogen) 10 mg/dL (7.0-18.7); Bilirubin, Total 0.4 mg/dL (0.2-1.2); Calc. Creatinine Clearance 129 mL/min (70-130); Calcium 8.9 mg/dL (7.8-10.44); Carbon Dioxide 20 mmol/L (22-29); Chloride 111 mmol/L (98-107); Globulin 3.2 g/dL (2.4-3.5); Glucose 94 mg/dL (70-105); Potassium 3.9 mmol/L (3.5-5.1); Protein, Total 6.9 g/dL (6.0-8.3); Sodium 138 mmol/L (136-145)
[2021-12-21] MEDS: Aspirin 81 mg Enteric Coated Tablet PO SCH (08:29)
[2021-12-21] MEDS: Enoxaparin Sodium 100 MG/ML SYRINGE SC SCH ×2 (08:29→20:08)
[2021-12-21] MEDS: Escitalopram Oxalate 20 mg Tablet PO SCH (08:29)
[2021-12-21] MEDS: Famotidine 20 MG TAB PO SCH ×2 (08:29→20:08)
[2021-12-21] MEDS: TOPIRAMATE 200 MG PO SCH (08:29)
[2021-12-21] MEDS: TICAGRELOR 90 MG TABLET PO SCH ×2 (09:58→20:08)
[2021-12-21] MEDS ORDERED: Communication Order-Pharmacy FS SCH (15:30)
[2021-12-21] MEDS ORDERED: hydrOXYzine 25 MG TAB PO PRN (17:20)
[2021-12-21] MEDS: Atorvastatin Calcium 40 MG TAB PO SCH (20:08)
[2021-12-21] MEDS: Melatonin 3 MG TAB PO PRN (21:11)
[2021-12-22 05:28] LABS: #Basophils 0.1 thou/uL (0.0-0.2); #Eosinphils 0.2 thou/uL (0.0-0.7); #Lymphocytes 3.7 thou/uL (1.20-3.40); #Monocytes 0.8 thou/uL (0.11-0.59); #Neutrophils 5.4 thou/uL (1.40-6.50); %Eosinophils 2.1 % (0.0-10.0); %Lymphocytes 36.2 % (21.0-51.0); %Neutrophils 52.8 % (42.0-75.0); Mean Corpuscular HGB CONC 32.7 g/dL (32.0-36.0); Mean Corpuscular Hemoglobin 31.3 pg (27.0-31.0); Mean Corpuscular Volume 95.6 fL (78.0-98.0); Mean Platelet Volume 6.8 fL (7.4-10.4); Platelet Count 208 thou/uL (130-400); RBC Distribution Width 11.5 % (11.5-14.5); Red Blood Cell (RBC) Count 4.15 mill/uL (4.20-5.40); White Blood Cell (WBC) Count 10.2 thou/uL (4.8-10.8)
[2021-12-22] MEDS: Nitroglycerin 2% Ointment 1 INCH/1 GM Packet TOP SCH ×2 (05:31→13:28)
[2021-12-22] MEDS: Aspirin 81 mg Enteric Coated Tablet PO SCH (05:44)
[2021-12-22] MEDS: TICAGRELOR 90 MG TABLET PO SCH (05:44)
[2021-12-22] MEDS: Famotidine 20 MG TAB PO SCH (05:45)
[2021-12-22] MEDS: Escitalopram Oxalate 20 mg Tablet PO SCH (05:45)
[2021-12-22] MEDS: TOPIRAMATE 200 MG PO SCH (05:47)
[2021-12-22] MEDS ORDERED: Sodium Chloride 0.9% 1,000 ML IV SCH (06:00)
[2021-12-22 06:02] LABS: ALT (SGPT) 66 U/L (8-55); AST (SGOT) 33 U/L (5-34); Albumin 3.8 g/dL (3.5-5.0); Alkaline Phosphatase 85 U/L (40-110); Anion Gap 12 mmol/L (10-20); BUN (Urea Nitrogen) 10 mg/dL (7.0-18.7); Bilirubin, Total 0.4 mg/dL (0.2-1.2); Calc. Creatinine Clearance 126 mL/min (70-130); Calcium 9.1 mg/dL (7.8-10.44); Carbon Dioxide 20 mmol/L (22-29); Chloride 110 mmol/L (98-107); Glucose 89 mg/dL (70-105); Potassium 3.8 mmol/L (3.5-5.1); Protein, Total 6.8 g/dL (6.0-8.3); Sodium 138 mmol/L (136-145)
[2021-12-22] MEDS ORDERED: Iopamidol 370 76% 100 ML VIAL ONE (08:09)
[2021-12-22] MEDS ORDERED: Fentanyl 100 MCG/2 ML VIAL ONE (14:53)
[2021-12-22] MEDS ORDERED: Midazolam HCl 2 mg/2 ml Vial ONE (14:53)
[2021-12-22] MEDS ORDERED: Atropine Sulfate 1 mg/10 ml Syringe ONE (15:36)
[2021-12-22] MEDS ORDERED: Acetaminophen/Codeine 30-300mg Tablet PO PRN ×2 (16:26)
[2021-12-22] MEDS ORDERED: Nitroglycerin 0.4 MG TAB (25 Tab Bottle) SL PRN (16:26)
[2021-12-22] MEDS ORDERED: Sodium Chloride 0.9% 200 ML IV PRN (16:26)
[2021-12-22] MEDS: Lorazepam 1 MG TAB PO PRN (16:44)
[2021-12-22 20:18] VITALS: BP 99/54; TEMP 98.7
== END 2021-12-22 20:06 | disposition home or self-care (01) | DRG 287 ==
LOC: ERS 09:30 → 2SW 12:01 → OBSVTOIN 12-20 14:07
PROVIDERS: ADMIT Student in an Organized Health Care Education/Training Program; ATTEND Emergency Medicine
PROC: 4A023N7 Measurement of Cardiac Sampling and Pressure, Left Heart, Percutaneous Approach (ICD-10-PCS; principal; 2021-12-22)
PROC: B2111ZZ Fluoroscopy of Multiple Coronary Arteries using Low Osmolar Contrast (ICD-10-PCS; 2021-12-22)
PROC: B2151ZZ Fluoroscopy of Left Heart using Low Osmolar Contrast (ICD-10-PCS; 2021-12-22)
DX: I25.111 Atherosclerotic heart disease of native coronary artery with angina pectoris with documented spasm (principal); N17.9 Acute kidney failure, unspecified; Z20.822 Contact with and (suspected) exposure to COVID-19; G62.9 Polyneuropathy, unspecified; F32.A Depression, unspecified; F41.1 Generalized anxiety disorder; I95.2 Hypotension due to drugs; T46.1X5A Adverse effect of calcium-channel blockers, initial encounter; Z86.74 Personal history of sudden cardiac arrest; I25.2 Old myocardial infarction; Z88.8 Allergy status to other drugs, medicaments and biological substances; Z91.012 Allergy to eggs; Z79.82 Long term (current) use of aspirin; Z79.899 Other long term (current) drug therapy
CPT/HCPCS: 36415; 71045; 76705; 80053; 80061; 80074; 82607; 83036; 83690; 83735; 83880; 84443; 84484; 84703; 85025; 85610; 85730; 86780; 87389; 93005; 93010; 93306; 93458; 96372; 99152; 99153; G0378; J0461; J1650; J2250; J3010; J7050; J7120; Q9967; U0003; U0005